=== PATIENT | female | born 1985 | race Caucasian/White ===

== ENCOUNTER 2022-08-31 13:18 | Outpatient (CLI) | payer BC, SELFPAY ==
--- OUTSIDE RECORDS SUMMARY | 2022-08-31 13:39 | XMS_ITS | Clinical Summary ---
:1985 Author Organization [facility] [place] [address] Care Team Providers Name Role Phone Tulio Navas MD Primary Care Provider [phone] Allergies No known active allergies Medications Medication Sig Dispensed Refills Start Date End Date Status polyethylene glycoL Take 17 g by mouth 1 jar 12 11/30/2017 Active (MIRALAX) 17 once daily. gram/dose powderIndications: Slow transit constipation traZODone (DESYREL) TAKE 1 TO 2 TABLETS 180 tablet 1 8 Active 50 mg BY MOUTH AT BEDTIME tabletIndications: Insomnia, unspecified type acetaminophen Take 1 to 2 tablets 100 tablet 0 07/18/2018 Active (TYLENOL EXTRA by mouth every 6 STRGTH) 500 mg hours if needed. tabletIndications: Max acetaminophen S/P laparoscopy dose: 4000mg in 24 hrs. ibuprofen (ADVIL; Take 1 tablet by 30 tablet 0 07/18/2018 Active MOTRIN) 600 mg mouth every 6 hours tabletIndications: if needed for Pain. S/P laparoscopy HYDROmorphone Take 1 tablet by 15 tablet 0 07/18/2018 Active (DILAUDID) 2 mg mouth every 4 hours tabletIndications: if needed for Pain. S/P laparoscopy docusate (COLACE) Take 1 capsule by 100 capsule 0 07/18/2018 Active 100 mg mouth 2 times daily capsuleIndications: if needed for S/P laparoscopy Constipation. 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 apanicolaou smear of 07/18/2017 cervix Overview: 07/2017 Plan: colposcopy Migraine 06/07/2014 Allergic rhinitis 02/18/2014 Vitamin D deficiency 03/29/2012 Major depressive disorder, recurrent episode, mild Immunizations Name Administration Dates Next Due Hepatitis B (Adult) 12/13/2006, 07/02/2006, 06/02/2006 Influenza, IIV3 (Age >=3 years) 07/18/2012, 08/27/2011, 07/19, 10/22/2009, 10/12/2008, 09/19/2007 Influenza, IIV4 07/27/2017, 07/30/2014 Influenza, IIV4 (Age 6-35 Mos) 08/06/2017 Tdap 04/03/2011 Tuberculin (PPD) 04/05/2018, 03/23/2018, 08/06/2014, 07/30/2014, 12/22/2011 Varicella Vaccine 09/19/2014, 08/17/2014 Family History Medical History Relation Name Comments Cancer-prostate Father Hypertension Father Heart Disease Maternal Grandfather [place] age 61 Hypertension Maternal Grandfather Heart Disease Maternal Grandmother SVT with ab lation Hypertension Maternal Grandmother Hyperlipidemia Mother Cancer-prostate Paternal Grandfather Hodgkin's lymphoma Paternal Uncle Relation Name Status Comments Father Maternal Grandfather Maternal Grandmother Mother Paternal Grandfather Paternal Grandmother Paternal Uncle Social History Tobacco Use Types Packs/Day Years Used Date Never Smoker Smokeless Tobacco: Never Used Alcohol Use Standard Drinks/Week Comments Yes 0 (1 standard drink = 0.6 oz pure alcoho l) occasionally 0-1 per month Alcohol Habits Answer Date Recorded How often do you have a drink containing Not asked alcohol? How many drinks containing alcohol do you Not asked have on a typical day when you are drinking? How often do you have six or more drinks on Not asked one occasion? Comment: occasionally 0-1 per month 07/18/2018 Sex Assigned at Date Recorded Not on file Obstetrics History Para Term AB IAB SAB Ectopic Multiple Living Live Births 3 2 2 0 1 0 1 0 0 2 3 Date Outcome GA Total Labor/2nd/3rd Weight Sex Delivery Anes PTL Awa A 1 A5 Name Clin Labor 10/18 SAB 6w0 SPONTANEO Dece /2002 d US ased 01/14 Term 40w 4.05 kg M Vag None Gracia 6 8 Zacha McInt /2003 0d (8 lb ng ry yre 15 oz) Delivery Location: [facility] 03/20/2007 Term 38w0d 3.32 kg (7 lb 5 oz) F Vag Awa ing 6 8 Navas Delivery Location: [facility] Last Filed Vital Signs Vital Sign Reading Time Taken Comments Blood Pressure 121/78 08/27/2019 2:37 PM PHYSICIAN AIDE Pulse 105 08/27/2019 2:37 PM PHYSICIAN AIDE Temperature 36.8 ??C (98.2 ??F) 08/27/2019 2:37 PM PHYSICIAN AIDE Respiratory Rate 17 08/27/2019 2:37 PM PHYSICIAN AIDE Oxygen Saturation 98% 08/27/2019 2:37 PM PHYSICIAN AIDE Inhaled Oxygen Concentration - - Weight 69.5 kg (153 lb 4.8 oz) 07/18/2018 6:19 AM CDT Height 174 cm (5' 8.5) 07/18/2018 6:19 AM CDT Body Mass Index 22.97 07/18/2018 6:19 AM CDT Plan of Treatment Health Maintenance Due Date Last Done Comments Depression screening for age 12+ 03/23/2019 03/23/2018, 06/2017, 12/26/2015 BMI (ht and wt on same day) for 06/29/2019 06/29/2018, 06/03/2018, age 18+ 08/18/2017, Additional history exists COVID-19 vaccine series (3 - 12/25/2020 10/30/2020, 020 Booster for Pfizer series) Tetanus booster 04/03/2021 04/03/2011, 04/03/2011 Influenza for age 9-49 06/18/2022 07/27/2017, 07/30/2014 (Completed outside of [facility]), 07/30/2014, Additional history exists Pap test for age 21-65 06/30/2024 06/30/2021, 06/30/2021, 09/16/2018 (Completed outside of [facility]), Additional history exists Tdap Completed 04/03/2011 Hepatitis C screening for age Completed 09/30/2012, 2011 18-79 Results Not on filefrom Last 3 Months Insurance Payer Benefit Plan / Subscriber ID Effective Dates Phone Addre ss Type Group 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 [place] [address] HEALTH HP [id number] 2014-Presen [address] [place] [address] MEDICA MEDICA HEALTH [id number] 2018-Presen [id number] [place] [id number] [id number] [place] (Home) BILL[address]ARC[phone] S[address] Butcher Personal/Famil Self 1985 [address] [place] [address] (Home) VANDANA [phone] BILLIE [address]TSON [id number] (Work) Sonia Butcher Workers Comp Self [id number] (Home) [address] [place] [id number] Advance Directives Latest Code Status on File Code Status Date Activated Date Inactivated Comments Full Code 07/18/2018 6:08 AM 07/18/2018 1:35 PM Full Code 04/08/2015 10:06 AM 04/09/2015 2:26 AM Full Code 04/08/2015 7:27 AM 04/08/2015 10:06 AM 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
[2022-09-02 19:16] LABS: Follicle Stimulating Hormone 8.6 IU/L; Luteinizing Hormone 11.4 IU/L
[2022-09-02 19:18] LABS: Estradiol Premenol Female 82 pg/mL
== END 2022-08-31 13:19 | disposition home or self-care (01) ==
PROVIDERS: PCP Family Medicine; Visit Provider Family Medicine
DX: R23.2 Flushing (principal); Z11.1 Encounter for screening for respiratory tuberculosis; F41.9 Anxiety disorder, unspecified
CPT/HCPCS: 82670; 83001; 83002; 86480

== ENCOUNTER 2022-09-17 07:16 | Emergency (ER) | payer BC, SELFPAY ==
[2022-09-17] VITALS (19 sets, daily range): BP systolic 74–124; BP diastolic 57–81; PULSE 83–102; RESP 18–22; TEMP 37–37.9; O2SAT 93–97; BMI 27.4
--- NOTE | 2022-09-17 07:57 | CRLHL7_ITS ---
For Patients: As a result of the Century Cures Act, medical imaging exams and procedure reports are released immediately into your electronic medical record. You may view this report before your referring provider. If you have questions, please contact your health care provider. INDICATION: Dyspnea. Factor 5. Not anticoagulated. History of pulmonary embolus COMPARISON: July 04, 2019 TECHNIQUE: : CT examination of the chest was performed with the uneventful intravenous administration of 95 cc of Isovue 370 while thin axial sections were obtained from above the apices of the lungs to the lung bases. Please note that all CT scans at this facility use dose modulation, iterative reconstruction, and/or weight-based dosing when appropriate to reduce radiation dose to as low as reasonably achievable. FINDINGS: : HEART and MEDIASTINUM: The heart size is normal. There is no mediastinal or hilar adenopathy or mass. There is no pericardial effusion. PULMONARY ARTERIAL CIRCULATION: There is no visible intraluminal filling defect to suggest pulmonary embolus. LUNGS: The lungs show no focal consolidation or mass. The airways appear normal. A few scattered linear opacities are likely related atelectasis parent PLEURAL SPACES: There is no pleural effusion, pneumothorax or pleural based mass. VISUALIZED UPPER ABDOMEN: The limited visualized upper abdominal structures appear normal. OSSEOUS STRUCTURES: Age-appropriate appearance. No acute fracture or destructive process. TUBES and LINES: None. IMPRESSION: There is no finding of pulmonary embolus. A few linear opacities are likely related to atelectasis. The lungs and pleural spaces are otherwise unremarkable. Please note that all CT scans at this facility use dose modulation, iterative reconstruction, and/or weight-based dosing when appropriate to reduce radiation dose to as low as reasonably achievable. Dictated by Montrell Nicole MD @ 09/17/2022 10:24:20 AM (Electronically Signed)
--- NOTE | 2022-09-17 08:01 | ED.URI ---
HPI - URI/Sore Throat General Chief Complaint: Cough <Sharmin Sahu MD - Last Filed: 09/17/22 08:15> Stated Complaint: fever, cough <Sharmin Sahu MD - Last Filed: 09/17/22 08:15> Time Seen by Provider: 09/17/22 07:32 <Sharmin Sahu MD - Last Filed: 09/17/22 08:15> Source: patient <Sharmin Sahu MD - Last Filed: 09/17/22 08:15> Mode of arrival: ambulatory <Sharmin Sahu MD - Last Filed: 09/17/22 08:15> Limitations: no limitations <Sharmin Sahu MD - Last Filed: 09/17/22 08:15> History of Present Illness HPI Narrative: 37-year-old female presents to the emergency department with a 4 week history of cough and upper respiratory infection. Patient reports that her symptoms had initially started to improve about 3 weeks ago and then 4 days ago, she started experiencing increased fatigue, sinus pressure and now is having shortness of breath. She also has some blood tinged nasal verses respiratory drainage. Not been checking her temperature as she does not have access to a thermometer but does feel like she is having significant sweats and chills. 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 She did get her flu shot this year. She has a notable history of pulmonary embolism a few years ago. This is when she was on low-dose continuous oral contraceptives, but workup did find that she had factor 5 Leiden. Her periods were quite awful when she was on the Xarelto and therefore she has switched to a low-dose aspirin. She has since had a uterine ablation and a Mirena IUD placed and reports that things are going better. She has not considered going back on stronger anticoagulation. She does admit that the shortness of breath is out of character for her and she is somewhat concerned about another blood clot as well. She did have posttussive emesis a couple of days ago but this has resolved. No pertinent travel. No swelling noted in her calves. She did a virtual appointment 3 days ago. Was given Tessalon Perles which helped slightly with her nighttime cough. She has been using the DayQuil and Tylenol through the day with some minimal improvement in symptoms. She presents today because she is not getting better at the rate she expected and is concerned she could have pneumonia. Past medical history is most notable for endometriosis and mildly provoked pulmonary embolism with a history of factor 5 Leiden. Home medications low-dose baby aspirin once daily, Lexapro and spironolactone which she uses for acne. Socially she is a nonsmoker with no other significant risk factors for illness exposure. ROS is notable for the HEENT, generalized, respiratory symptoms as described above. Otherwise she denies times 12 systems. <Sharmin Shau MD - Last Filed: 09/17/22 08:15> Related Data Home Medications: Home Medications Medication Instructions Recorded Confirmed aspirin 81 mg tablet,delayed 81 mg PO QDAY 05/26/22 08/31/22 release levonorgestrel 20 mcg/24 hours (8 1 device intrauterine ONCE 07/06/22 08/31/22 yrs) 52 mg intrauterine device (Mirena) albuterol sulfate 90 mcg/actuation 2 puff inhalation PRN 08/31/22 08/31/22 aerosol inhaler Previous Rx's Medication Instructions Recorded escitalopram oxalate 10 mg tablet 10 mg PO QDAY #90 tabs 07/06/22 (Lexapro) spironolactone 50 mg tablet 50 mg PO QDAY #90 tabs 07/06/22 tramadol 50 mg tablet 50 mg PO Q6-8H PRN pain #30 tabs 07/06/22 trazodone 50 mg tablet 50 mg PO .HS PRN sleep #90 tabs 07/06/22 oseltamivir 75 mg capsule (Tamiflu) 75 mg PO BID 5 days #10 caps 09/17/22 <Shramin Sahu MD - Last Filed: 09/17/22 08:15> Allergies/Adverse Reactions: Allergies Allergy/AdvReac Type Severity Reaction Status Date / Time No Known Drug Allergies Allergy Verified 09/17/22 07:20 <Sharmin Sahu MD - Last Filed: 09/17/22 08:15> [facility] Medical History: Medical History Acne vulgaris Allergic rhinitis Bilateral pulmonary embolism Cervical herniated disc Endometriosis determined by laparoscopy Factor 5 Leiden mutation, heterozygous Insomnia 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, social EtOH Smoking Status: Never smoker Do you use any of these nicotine containing products: None Second hand tobacco smoke exposure: No How often do you have a drink containing alcohol: monthly or less How many standard drinks containing alcohol do you have on a typical day: 1 or 2 How often do you have six or more drinks on one occasion: Never AUDIT-C Alcohol total score: 1 Non-prescribed substance use: denies use Little interest or pleasure in doing things: not at all Feeling down, depressed, or hopeless: not at all service: No <Sharmin Sahu MD - Last Filed: 09/17/22 08:15> Exam Const: Vital Signs, click to edit/add: Vital Signs - 24 hr 09/17/22 07:21 09/17/22 08:21 Temperature 100.3 F H Pulse Rate 92 Pulse Rate [Pulse Oximeter] 99 Respiratory Rate 22 Blood Pressure [Ri ght Upper Arm] 124/81 Pulse Oximetry 94 95 Oxygen Delivery Me thod Room Air <Sharmin Sahu MD - Last Filed: 09/17/22 08:15> Vital Signs, click to edit/add: Vital Signs - 24 hr 09/17/22 07:21 09/17/22 08:21 Temperature 100.3 F H Pulse Rate 92 Pulse Rate [Pulse Oximeter] 99 Respiratory Rate 22 Blood Pressure [Ri ght Upper Arm] 124/81 Pulse Oximetry 94 95 Oxygen Delivery Me thod Room Air <Tigist Marina MD - Last Filed: 09/17/22 10:34> Documenting provider has reviewed patient's vital signs: yes <Sharmin Sahu MD - Last Filed: 09/17/22 08:15> Common normals: no apparent distress <Sharmin Sahu MD - Last Filed: 09/17/22 08:15> General appearance: cooperative and well kempt <Sharmin Sahu MD - Last Filed: 09/17/22 08:15> Other: Appears mildly ill <Sharmin Sahu MD - Last Filed: 09/17/22 08:15> HENMT: Common normals: normocephalic <Sharmin Sahu MD - Last Filed: 09/17/22 08:15> Head and scalp: normocephalic <Sharmin Sahu MD - Last Filed: 09/17/22 08:15> Other: Nose with mild clear mucus rhinorrhea. Mildly inflamed nasal passages oropharynx with acyanotic lips, moist membranes. Mild postnasal drip noted. <Sharmin Sahu MD - Last Filed: 09/17/22 08:15> Eye: Other: Sclera and conjunctiva are mildly injected but with no exudate. Normal-appearing pupils and normal visual tracking <Sharmin Sahu MD - Last Filed: 09/17/22 08:15> Neck & C-Spine: Other: Mild anterior cervical and submandibular lymphadenopathy <Sharmin Sahu MD - Last Filed: 09/17/22 08:15> Resp: Common normals: normal respiratory effort, no use of accessory muscles and clear to auscultation bilaterally <MD Idalmis Wilcox Last Filed: 09/17/22 08:15> Effort & inspection: able to speak in complete sentences <MD Idalmis Wilcox Last Filed: 09/17/22 08:15> Auscultation: clear to auscultation bilaterally <MD Idalmis Wilcox Last Filed: 09/17/22 08:15> Cardio: Common normals: regular rate, regular rhythm, S1 normal heart sound, S2 normal heart sound, no murmurs and peripheral pulses 2+ throughout <MD Idalmis Wilcox Last Filed: 09/17/22 08:15> Rate: regular rate <MD Idalmis Wilcox Last Filed: 09/17/22 08:15> Rhythm: regular rhythm <MD Idalmis Wilcox Last Filed: 09/17/22 08:15> Heart sounds: S1 normal and S2 normal <MD Idalmis Wilcox Last Filed: 09/17/22 08:15> Peripheral pulses: pulses 2+ throughout <MD Idalmis Wilcox Last Filed: 09/17/22 08:15> GI: Common normals: Normal to inspection, nondistended, normoactive bowel sounds present, soft to palpation, non-tender and no hepatosplenomegaly <MD Idalmis Wilcox Last Filed: 09/17/22 08:15> Palpation: soft and no hepatosplenomegaly <MD Idalmis Wilcox Last Filed: 09/17/22 08:15> Extremity: Common normals: normal to inspection, normal capillary refill and no pedal edema <MD Idalmis Wilcox Last Filed: 09/17/22 08:15> Neuro: Speech: speech normal <MD Idalmis Wilcox Last Filed: 09/17/22 08:15> Motor exam: no tremor noted and no movement abnormalities noted <MD Idalmis Wilcox Last Filed: 09/17/22 08:15> Psych: Common normals: thought process normal, cooperative and affect normal <MD Idalmis Wilcox Last Filed: 09/17/22 08:15> Appearance: well kempt <MD Idalmis Wilcox Last Filed: 09/17/22 08:15> Thought process: normal thought process <MD Idalmis Wilcox Last Filed: 09/17/22 08:15> Insight: insight good <MD Idalmis Wilcox Last Filed: 09/17/22 08:15> Judgement: judgment good <MD Idalmis Wilcox Last Filed: 09/17/22 08:15> Skin: Common normals: no rashes or lesions noted <Sharmin Sahu MD - Last Filed: 09/17/22 08:15> General skin exam: no rashes or lesions noted <Sharmin Sahu MD - Last Filed: 09/17/22 08:15> Course Course Hospital Course: Differential diagnosis including RSV, influenza. Most likely influenza. Cannot exclude pneumonia, pulmonary embolism, especially with her history of shortness of breath and prior PE on oral contraceptives. Other viral etiologies in sinus infection considered as well. No signs of any cardiac disease. Recommended basic labs to look for any signs of bacterial infection, inflammation, electrolyte abnormality. Swabs for influenza, RSV and COVID. Discussed risks and benefits of a D-dimer test, it would not change my management. Based on her shortness of breath, slight hemoptysis and history, I do recommend a CT scan of the chest and she was agreeable to this. No treatments will be initiated just yet. Will hand over care to my partner, Dr. Marina. <Sharmin Sahu MD - Last Filed: 09/17/22 08:15> Reevaluation(s) Reevaluation #1: Patient's lab work was unremarkable, influenza was positive. Chest CT negative for PE or pneumonia. <Tigist Marina MD - Last Filed: 09/17/22 10:34> Vital Signs Vital signs: Initial Vital Signs Temperature 100.3 F H 09/17/22 07:21 Temperature Source Temporal Artery Scan 09/17/22 07:21 Pulse Rate 99 09/17/22 07:21 Pulse Rhythm 09/17/22 07:21 Respiratory Rate 22 09/17/22 07:21 Blood Pressure 124/81 09/17/22 07:21 Blood Pressure Mean 95 09/17/22 07:21 Pulse Oximetry 94 09/17/22 07:21 Oxygen Delivery Method 09/17/22 07:21 Vital Signs Temperature 100.3 F H 09/17/22 07:21 Pulse Rate 99 09/17/22 07:21 Respiratory Rate 22 09/17/22 07:21 Blood Pressure 124/81 09/17/22 07:21 Pulse Oximetry 94 09/17/22 07:21 Oxygen Delivery Method 09/17/22 07:21 Temperature 100.3 F H 09/17/22 07:21 Pulse Rate 92 09/17/22 08:21 Respiratory Rate 22 09/17/22 07:21 Blood Pressure 124/81 09/17/22 07:21 Pulse Oximetry 95 09/17/22 08:21 Oxygen Delivery Method 09/17/22 07:21 <Sharmin Sahu MD - Last Filed: 09/17/22 08:15> Initial Vital Signs Temperature 100.3 F H 09/17/22 07:21 Temperature Source Temporal Artery Scan 09/17/22 07:21 Pulse Rate 99 09/17/22 07:21 Pulse Rhythm 09/17/22 07:21 Respiratory Rate 22 09/17/22 07:21 Blood Pressure 124/81 09/17/22 07:21 Blood Pressure Mean 95 09/17/22 07:21 Pulse Oximetry 94 09/17/22 07:21 Oxygen Delivery Method 09/17/22 07:21 Vital Signs Temperature 100.3 F H 09/17/22 07:21 Pulse Rate 99 09/17/22 07:21 Respiratory Rate 22 09/17/22 07:21 Blood Pressure 124/81 09/17/22 07:21 Pulse Oximetry 94 09/17/22 07:21 Oxygen Delivery Method 09/17/22 07:21 Temperature 100.3 F H 09/17/22 07:21 Pulse Rate 92 09/17/22 08:21 Respiratory Rate 22 09/17/22 07:21 Blood Pressure 124/81 09/17/22 07:21 Pulse Oximetry 95 09/17/22 08:21 Oxygen Delivery Method 09/17/22 07:21 <Tigist Marina MD - Last Filed: 09/17/22 10:34> MDM - URI/Sore Throat MDM Narrative Medical decision making narrative: 37-year-old female with influenza a. We discussed symptomatic treatment, Tamiflu use, reasons for follow-up. Patient was agreeable and had no other questions. <Tigist Marina MD - Last Filed: 09/17/22 10:34> Lab Data Attestation: I reviewed the patient's lab results. <Tigist Marina MD - Last Filed: 09/17/22 10:34> Labs: Lab Results 09/17/22 09/17/22 09/17/22 Range/Units 07:45 08:15 08:15 WBC 4.93 (4.50-11.00) K/uL RBC 5.07 (4.00-5.20) m/uL Hgb 14.8 (12.0-16.0) gm/dL Hct 45.6 (33.0-51.0) % MCV 90 (80-100) fL MCH 29 (26-34) pg MCHC 33 (32-36) gm/dL RDW Coeff of Kris 12.7 (11.5-15.5) % Plt Count 202 (140-440) K/uL Neut % (Auto) 73.1 H (42.0-72.0) % Lymph % (Auto) 17.0 L (20-44) % Gibson % (Auto) 9.3 (0.0-11.0) % Eos % (Auto) 0.4 (0.0-7.0) % Baso % (Auto) 0.0 (0.0-3.0) % Neut # (Auto) 3.60 (1.7-7.0) K/uL Lymph # (Auto) 0.80 L (0.90-2.90) K/uL Gibson # (Auto) 0.50 (0.00-0.90) K/UL Eos # (Auto) 0.02 (0.00-0.50) K/uL Baso # (Auto) 0.00 (0.00-0.30) K/uL Abs Immat Gran (auto) 0.01 (0.00-0.30) K/uL Imm/Tot Granulo (auto) 0.2 % Sodium 139 (135-149) mmol/L Potassium 3.5 L (3.6-5.1) mmol/L Chloride 105 (96-114) mmol/L Carbon Dioxide 27 (20-32) mmol/L BUN 11 (5-24) mg/dL Creatinine 0.6 (0.5-1.5) mg/dL Estimated Creat Clear 129.50 Estimated GFR 118 ml/min Glucose 91 (60-115) mg/dL Calcium 8.4 (8.4-10.6) mg/dL C-Reactive Protein 5.9 H (0.5-1.0) mg/dL HCG, Qual (Negative) SARS-CoV-2 (PCR) Negative SARS-CoV-2 (Negative) Influenza Type A (PCR) POSITIVE PCR FLU A A (Negative) Influenza Type B (PCR) Negative PCR FLU B (Negative) RSV (PCR) Negative PCR RSV (Negative) 09/17/22 Range/Units 08:15 WBC (4.50-11.00) K/uL RBC (4.00-5.20) m/uL Hgb (12.0-16.0) gm/dL Hct (33.0-51.0) % MCV (80-100) fL MCH (26-34) pg MCHC (32-36) gm/dL RDW Coeff of Kris (11.5-15.5) % Plt Count (140-440) K/uL Neut % (Auto) (42.0-72.0) % Lymph % (Auto) (20-44) % Gibson % (Auto) (0.0-11.0) % Eos % (Auto) (0.0-7.0) % Baso % (Auto) (0.0-3.0) % Neut # (Auto) (1.7-7.0) K/uL Lymph # (Auto) (0.90-2.90) K/uL Gibson # (Auto) (0.00-0.90) K/UL Eos # (Auto) (0.00-0.50) K/uL Baso # (Auto) (0.00-0.30) K/uL Abs Immat Gran (auto) (0.00-0.30) K/uL Imm/Tot Granulo (auto) % Sodium (135-149) mmol/L Potassium (3.6-5.1) mmol/L Chloride (96-114) mmol/L Carbon Dioxide (20-32) mmol/L BUN (5-24) mg/dL Creatinine (0.5-1.5) mg/dL Estimated Creat Clear Estimated GFR ml/min Glucose (60-115) mg/dL Calcium (8.4-10.6) mg/dL C-Reactive Protein (0.5-1.0) mg/dL HCG, Qual Negative (Negative) SARS-CoV-2 (PCR) (Negative) Influenza Type A (PCR) (Negative) Influenza Type B (PCR) (Negative) RSV (PCR) (Negative) <Sharmin Sahu MD - Last Filed: 12/01/22 08:15> Lab Results 09/17/22 09/17/22 09/17/22 Range/Units 07:45 08:15 08:15 WBC 4.93 (4.50-11.00) K/uL RBC 5.07 (4.00-5.20) m/uL Hgb 14.8 (12.0-16.0) gm/dL Hct 45.6 (33.0-51.0) % MCV 90 (80-100) fL MCH 29 (26-34) pg MCHC 33 (32-36) gm/dL RDW Coeff of Kris 12.7 (11.5-15.5) % Plt Count 202 (140-440) K/uL Neut % (Auto) 73.1 H (42.0-72.0) % Lymph % (Auto) 17.0 L (20-44) % Gibson % (Auto) 9.3 (0.0-11.0) % Eos % (Auto) 0.4 (0.0-7.0) % Baso % (Auto) 0.0 (0.0-3.0) % Neut # (Auto) 3.60 (1.7-7.0) K/uL Lymph # (Auto) 0.80 L (0.90-2.90) K/uL Gibson # (Auto) 0.50 (0.00-0.90) K/UL Eos # (Auto) 0.02 (0.00-0.50) K/uL Baso # (Auto) 0.00 (0.00-0.30) K/uL Abs Immat Gran (auto) 0.01 (0.00-0.30) K/uL Imm/Tot Granulo (auto) 0.2 % Sodium 139 (135-149) mmol/L Potassium 3.5 L (3.6-5.1) mmol/L Chloride 105 (96-114) mmol/L Carbon Dioxide 27 (20-32) mmol/L BUN 11 (5-24) mg/dL Creatinine 0.6 (0.5-1.5) mg/dL Estimated Creat Clear 129.50 Estimated GFR 118 ml/min Glucose 91 (60-115) mg/dL Calcium 8.4 (8.4-10.6) mg/dL C-Reactive Protein 5.9 H (0.5-1.0) mg/dL HCG, Qual (Negative) SARS-CoV-2 (PCR) Negative SARS-CoV-2 (Negative) Influenza Type A (PCR) POSITIVE PCR FLU A A (Negative) Influenza Type B (PCR) Negative PCR FLU B (Negative) RSV (PCR) Negative PCR RSV (Negative) 09/17/22 Range/Units 08:15 WBC (4.50-11.00) K/uL RBC (4.00-5.20) m/uL Hgb (12.0-16.0) gm/dL Hct (33.0-51.0) % MCV (80-100) fL MCH (26-34) pg MCHC (32-36) gm/dL RDW Coeff of Kris (11.5-15.5) % Plt Count (140-440) K/uL Neut % (Auto) (42.0-72.0) % Lymph % (Auto) (20-44) % Gibson % (Auto) (0.0-11.0) % Eos % (Auto) (0.0-7.0) % Baso % (Auto) (0.0-3.0) % Neut # (Auto) (1.7-7.0) K/uL Lymph # (Auto) (0.90-2.90) K/uL Gibson # (Auto) (0.00-0.90) K/UL Eos # (Auto) (0.00-0.50) K/uL Baso # (Auto) (0.00-0.30) K/uL Abs Immat Gran (auto) (0.00-0.30) K/uL Imm/Tot Granulo (auto) % Sodium (135-149) mmol/L Potassium (3.6-5.1) mmol/L Chloride (96-114) mmol/L Carbon Dioxide (20-32) mmol/L BUN (5-24) mg/dL Creatinine (0.5-1.5) mg/dL Estimated Creat Clear Estimated GFR ml/min Glucose (60-115) mg/dL Calcium (8.4-10.6) mg/dL C-Reactive Protein (0.5-1.0) mg/dL HCG, Qual Negative (Negative) SARS-CoV-2 (PCR) (Negative) Influenza Type A (PCR) (Negative) Influenza Type B (PCR) (Negative) RSV (PCR) (Negative) <Tigist Marina MD - Last Filed: 09/17/22 10:34> Imaging Data CT scan - chest: Attestation: I have reviewed the pertinent imaging results. <Tigist Marina MD - Last Filed: 09/17/22 10:34> Radiologist's impression: CT examination of the chest was performed with the uneventful intravenous administration of 95 cc of Isovue 370 while thin axial sections were obtained from above the apices of the lungs to the lung bases. Please note that all CT scans at this facility use dose modulation, iterative reconstruction, and/or weight-based dosing when appropriate to reduce radiation dose to as low as reasonably achievable. FINDINGS: : HEART and MEDIASTINUM: The heart size is normal. There is no mediastinal or hilar adenopathy or mass. There is no pericardial effusion. PULMONARY ARTERIAL CIRCULATION: There is no visible intraluminal filling defect to suggest pulmonary embolus. LUNGS: The lungs show no focal consolidation or mass. The airways appear normal. A few scattered linear opacities are likely related atelectasis parent PLEURAL SPACES: There is no pleural effusion, pneumothorax or pleural based mass. VISUALIZED UPPER ABDOMEN: The limited visualized upper abdominal structures appear normal. OSSEOUS STRUCTURES: Age-appropriate appearance. No acute fracture or destructive process. TUBES and LINES: None. IMPRESSION: There is no finding of pulmonary embolus. A few linear opacities are likely related to atelectasis. The lungs and pleural spaces are otherwise unremarkable. <Tigist Marina MD - Last Filed: 09/17/22 10:34> Discharge Plan Discharge Clinical Impression: Influenza A <Sharmin Sahu MD - Last Filed: 09/17/22 08:15> Patient Disposition: Home, Self-Care <Sharmin Sahu MD - Last Filed: 09/17/22 08:15> Condition: Stable <Sharmin Sahu MD - Last Filed: 09/17/22 08:15> Additional Instructions: Continue using ibuprofen or Tylenol as needed for fevers and achiness. Rest as much as you can. Do your best to stay well hydrated. <Sharmin Sahu MD - Last Filed: 09/17/22 08:15> Prescriptions: New oseltamivir [Tamiflu] 75 mg capsule 75 mg PO BID 5 Days Qty: 10 0RF No Action Mirena 20 mcg/24 hours (7 yrs) 52 mg intrauterine device 1 device intrauterine ONCE Rx Instructions: as a single dose escitalopram oxalate [Lexapro] 10 mg tablet 10 mg PO QDAY Qty: 90 3RF spironolactone 50 mg tablet 50 mg PO QDAY Qty: 90 3RF trazodone 50 mg tablet 50 mg PO .HS PRN (Reason: sleep) Qty: 90 3RF tramadol 50 mg tablet 50 mg PO Q6-8H PRN (Reason: pain) Qty: 30 1RF albuterol sulfate 90 mcg/actuation HFA aerosol inhaler 2 puff inhalation PRN aspirin 81 mg tablet,delayed release (DR/EC) 81 mg PO QDAY <Sharmin Sahu MD - Last Filed: 09/17/22 08:15> Follow Up/Referrals: Tulio Navas MD [Primary Care Provider] - <Sharmin Sahu MD - Last Filed: 09/17/22 08:15> Stand Alone Forms: MyHealth Info Instructions <Sharmin Sahu MD - Last Filed: 09/17/22 08:15>
--- OUTSIDE RECORDS SUMMARY | 2022-09-17 08:16 | XMS_ITS | Clinical Summary ---
:1985 Author Organization [employer] [facility] [place] [address] Care Team Providers Name Role Phone Tulio Navas MD Primary Care Provider [phone] Allergies No known active allergies Medications [...] Father Hypertension Father Heart Disease Maternal Grandfather [place] age 61 Hypertension Maternal Grandfather Heart Disease [...] ng ry yre 15 oz) Delivery Location: [facility] 03/20/2007 Term 38w0d 3.32 kg (7 lb 5 oz) F Vag Awa ing 6 8 Navas Delivery Location: [facility] Last Filed Vital Signs Vital Sign Reading Time Taken Comments Blood Pressure 121/78 08/27/2019 2:37 PM 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 Pulse 105 08/27/2019 2:37 PM 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 Temperature 36.8 ??C (98.2 ??F) 08/27/2019 2:37 PM 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 Respiratory Rate 17 08/27/2019 2:37 PM 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 Oxygen Saturation 98% 08/27/2019 2:37 PM 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 Inhaled Oxygen Concentration - - Weight 69.5 [...] 9-49 06/18/2022 07/27/2017, 07/30/2014 (Completed outside of [facility]), 07/30/2014, Additional history exists Pap test for age 21-65 06/30/2024 06/30/2021, 06/30/2021, 09/16/2018 (Completed outside of [facility]), Additional history exists Tdap Completed 04/03/2011 HIV for age 15-65 Completed 09/30/2012, 08/10/2012 Hepatitis C screening for age Completed 09/30/2012, 2011 18-79 Results Not on filefrom Last 3 Months Insurance Payer Benefit Plan / Subscriber ID Effective Dates Phone Addre ss Type Group WC 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 [place] [address] HEALTH HP [id number] 2014-Presen [address] [place] [address] MEDICA MEDICA HEALTH [id number] 2018-Presen [id number] [place] [id number] [address] (Home) [place] [phone] S[address] Butcher Personal/Famil Self 1985 [address] (Home) VANDANA [phone] [address]ILL[address] [place] [phone] (Work) Sonia Butcher Workers Comp Self [id number] (Home) [address] [place] [id number] Advance Directives Latest Code Status on File Code Status Date Activated Date Inactivated Comments Full Code 07/18/2018 6:08 AM 07/18/2018 1:35 PM Full Code 04/08/2015 10:06 AM 04/09/2015 2:26 AM Full Code 04/08/2015 7:27 AM 04/08/2015 10:06 AM 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
[2022-09-17 08:23] LABS: Eosinophils Absolute Auto 0.02 K/uL (0.00-0.50); Eosinophils Percent Auto 0.4 % (0.0-7.0); Hematocrit 45.6 % (33.0-51.0); Hemoglobin* 14.8 gm/dL (12.0-16.0); Immature Granulocytes Abs Auto 0.01 K/uL (0.00-0.30); Immature Granulocytes Pct Auto 0.2 %; Mean Corpuscular HGB Conc 33 gm/dL (32-36); Mean Corpuscular Hemoglobin 29 pg (26-34); Mean Corpuscular Volume 90 fL (80-100); Monocytes Percent Auto 9.3 % (0.0-11.0); Neutrophils Percent Auto 73.1 % (42.0-72.0); Platelet Count* 202 K/uL (140-440); RDW Coefficient of Variation % 12.7 % (11.5-15.5); Red Blood Count 5.07 m/uL (4.00-5.20); White Blood Count* 4.93 K/uL (4.50-11.00)
[2022-09-17 08:24] LABS: Slide Review Reflex No
[2022-09-17 08:30] LABS: PCR FLU A POSITIVE PCR FLU A (Negative); PCR FLU B Negative PCR FLU B (Negative); PCR RSV Negative PCR RSV (Negative)
[2022-09-17 08:36] LABS: Chloride* 105 mmol/L (96-114); Sodium* 139 mmol/L (135-149)
[2022-09-17 08:37] LABS: Potassium* 3.5 mmol/L (3.6-5.1)
[2022-09-17 08:38] LABS: SARS PCR* Negative SARS-CoV-2 (Negative)
[2022-09-17 08:39] LABS: Creatinine* 0.6 mg/dL (0.5-1.5); Estimated Glomerular Filt Rate 118 ml/min
[2022-09-17 08:40] LABS: Blood Urea Nitrogen* 11 mg/dL (5-24); Calcium* 8.4 mg/dL (8.4-10.6); Carbon Dioxide* 27 mmol/L (20-32); Glucose* 91 mg/dL (60-115)
[2022-09-17 08:43] LABS: C Reactive Protein* 5.9 mg/dL (0.5-1.0)
[2022-09-17 09:19] LABS: HCG Qualitative* Negative (Negative)
[2022-09-19 12:43] LABS: Prolactin 10.6 ng/mL (2.8-29.2)
== END 2022-09-17 11:03 | disposition home or self-care (01) ==
PROVIDERS: Family Medicine; Emergency Provider Family Medicine; PCP Family Medicine
DX: J09.X2 Influenza due to identified novel influenza A virus with other respiratory manifestations (principal)
CPT/HCPCS: 36415; 71260; 80048; 84146; 84703; 85025; 86140; 87502; 87634; 87635; 99284; Q9967

== ENCOUNTER 2023-09-14 08:52 | Outpatient (CLI) | payer BC, SELFPAY | END 2023-09-14 08:53 | disposition home or self-care (01) | PROVIDERS: PCP Family Medicine; Visit Provider Family Medicine | DX: Z00.00 Encounter for general adult medical examination without abnormal findings (principal); E55.9 Vitamin D deficiency, unspecified; D68.51 Activated protein C resistance | CPT/HCPCS: 80048; 80061 ==

== ENCOUNTER 2024-09-18 14:21 | Outpatient (CLI) | payer BC, SELFPAY ==
--- OUTSIDE RECORDS SUMMARY | 2024-09-18 14:47 | XMS_ITS | Clinical Summary ---
Author Organization [facility] Address [place], [place] [address] Care Team Providers Care Family Practice Medical Doctor Name Role Phone Tulio Navas MD Primary Care Provider + Allergies No known active allergies Medications Medication Sig Dispensed Refills Start Date End Date Status polyethylene glycoL (MIRALAX) 17 gram/dose powderIndications: Slow transit constipation Take 17 g by mouth once daily. 1 jar 12 11/30/2017 Active Additional Information Patient taking differently:17 g OralDAILY PRN, Informant: Patient's Recall, Reported on 07/14/2018 traZODone (DESYREL) 50 mg tabletIndications: Insomnia, unspecified type TAKE 1 TO 2 TABLETS BY MOUTH AT BEDTIME 180 tablet 1 07/12/2018 Active acetaminophen (TYLENOL EXTRA STRGTH) 500 mg tabletIndications: S/P laparoscopy Take 1 to 2 tablets by mouth every 6 hours if needed. Max acetaminophen dose: 4000mg in 24 hrs. 100 tablet 07/18/2018 Active ibuprofen (ADVIL; MOTRIN) 600 mg tabletIndications: S/P laparoscopy Take 1 tablet by mouth every 6 hours if needed for Pain. 30 tablet 07/18/2018 Active HYDROmorphone (DILAUDID) 2 mg tabletIndications: S/P laparoscopy Take 1 tablet by mouth every 4 hours if needed for Pain. 15 tablet 07/18/2018 Active docusate (COLACE) 100 mg capsuleIndications :S/P laparoscopy Take 1 capsule by mouth 2 times daily if needed for Constipation. 100 capsule 07/18/2018 Active Active Problems Problem Noted Date Diagnosed Date Low grade squamous intraepit helial lesion (LGSIL) on Papanicolaou smear of cervix 07/18/2017 Overview (08/24/2017): 07/2017 Plan: colposcopy Migraine 06/07/2014 Allergic rhinitis 02/18/2014 Vitamin D deficiency 03/29/2012 Major depressive disorder, recurrent episode, mi ld 05/03/2007 Immunizations Name Administration Dates Next Due Hepatitis B (Adult) 12/13/2006,07/02/2006,2005 Influenza, IIV3 (Age >=3 years) 07/18/20 12,08/27/2011,08/07/2010,10/22/2009, 10/12/2008,09/19/2007 Influenza, IIV4 07/27/2017,07/30/2014 Influenza, IIV4 (Age 6-35 Mos) 08/06/2017 Tdap 04/03/2011 Tuberculin (PPD) 04/05/2018, 8,08/06/2014,07/30/2014, 12/22/2011 Varicella Vaccine 09/19/2014,08/17/2014 Family History Medical History Relation Name Comments Cancer-prostate Father Hypertension Father Heart Disease Maternal Grandfather MD age 61 Hypertension Maternal Grandfather Heart Disease Maternal Grandmother SVT wi th ablation Hypertension Maternal Grandmother Hyperlipidemia Mother Cancer-prostate Paternal Grandfather Hodgkin's lymphoma Paternal Uncle Relation Name Status Comments Father Maternal Grandfather Maternal Grandmother Mother Paternal Grandfather Paternal Grandmother Paternal Uncle Social History Tobacco Use Types Packs/Day Years Used Date Smoking Tobacco: Never Smokeless Tobacco: Never Alcohol Use Standard Drinks/Week Comments Yes 0 (1 standard drink = 0.6 oz pur e alcohol) occasionally 0-1 per month PHQ-2 Answer Date Recorded PHQ-2 Score 0 12/17/2018 Sex and Gender Information Value Date Recorded Sex Assigned at Not on file Gender Identity Not on file Sexual Orientation Not on file Obstetrics History Para Term AB IAB SAB Ectopic Multiple Livin g Live Births 3 2 2 0 1 0 1 0 0 2 3 Date Outcome GA Total Labor Labor/2nd/3rd Weight Sex Type Anes PTL Awa A1 A5 Name Clin 2002 SAB 6w0 d SPONTA NEOUS Decea sed 2003 Term 40w 0d 4.05 kg (8 lb 15 oz) M Vag None Livin g 6 8 [place] Delivery Location:[facility] 2006 Term 38w 0d 3.32 kg (7 lb 5 oz) F Xochilt Wagner g 6 8 [place] Delivery Location:[facility] Last Filed Vital Signs Vital Sign Reading Time Taken Comments Blood Pressure 118/85 04/02/2024 1:00 AM CDT Pulse 87 04/02/2024 1:00 AM CDT Temperature 36.9 C (98.5 F) 04/01/2024 11:02 PM CDT Respiratory Rate 14 04/02/2024 1:00 AM CDT Oxygen Saturation 100% 04/02/2024 1:00 AM CDT Inhaled Oxygen Concentration - - Weight 79.8 kg (176 lb) 04/01/2024 11:07 PM CDT Height 172.7 cm (5' 8) 04/01/2024 11:07 PM CDT Body Mass Index 26.76 04/01/2024 11:07 PM CDT Plan of Treatment Health Maintenance Due Date Last Done Comments Depression screening for age 12+ 03/23/2019 03/23/2018, 07/26/2017, 12/26/2015 BMI (ht and wt on same day) for age 18+ 06/29/2019 06/29/2018, 03/23/2018, 08/18/2017, Additional history exists Tetanus booster 04/03/2021 04/03/2011, 04/03/2011 COVID-19 vaccine series ( season) 2024 08/20/2023, 08/01/2021, 10/30/2020, Additional history exists Influenza for age 9-49 06/18/2024 7, 07/30/2014 (Completed outside of [facility]), 07/30/2014, Additional history exists Pap test for age 21-65 06/30/2024 , 06/30/2021, 09/16/2018 (Completed outside of [facility]), Additional history exists Tdap Completed 04/03/2011 HIV for age 15-65 Completed 09/30/2012, 08/10/2012 Hepatitis C screening for age 18-79 Completed 09/30/2012, 08/10/2012 Pneumococcal series for age 6-64 Aged Out No longer eligible based on patient's age to complete this topic Procedures Procedure Name Priority Date/Time Associated Diagnosis Comments HPV HIGH RISK Routine 06/30/2021 12:00 PM CDT ANTI HIV 1/2 Routine 09/30/2012 12:42 PM 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 exposure in workplace ANTI HCV Routine 09/30/2012 12:42 PM [employer]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 exposure in workplace from Last 3 Months or Most Recently Relevant to Health Maintenance Results * HPV HIGH RISK (06/30/2021 12:00 PM CDT) TYPE 16 Negative Negative 07/04/2021 5:37 AM CDT [facility] TYPE 18 Negative Negative 07/04/2021 5:37 AM CDT [facility] OTHER HIGH RISK TYPES Negative Negative 07/04/2021 5:37 AM CDT [facility] Other (Cervical/Vagina l) 06/30/2021 12:00 PM CDT 07/02/2021 9:28 AM CDT Narrative [facility] - 07/04/2021 5:37 AM CDT HPV types 16, 18, 31, 33, 35, 39, 45, 51, 52, 56, 58, 59, 66 and 68 DNA were undetectable or below the pre-set threshold. Methodology: Becka Connie 4800 HPV Test Tulio Navas MD MICROBIOLOGY [facility] [address] [place] [address], * ANTI HCV (09/30/2012 12:42 PM SANITATION OFFICER) ANTI HCV Non-reacti ve [facility] Blood specimen (specimen) BLOOD SPECIMEN / Unknown 09/30/2012 12:42 PM SANITATION OFFICER 09/30/2012 12:34 PM SANITATION OFFICER Jayshree Leslie MD [employer] [facility] [place]NAL ZIP [id number] [address] [place] [address] * ANTI HIV 1/2 (09/30/2012 12:42 PM SANITATION OFFICER) ANTI HIV 1/2 Non-reacti ve [facility] Blood specimen (specimen) BLOOD SPECIMEN / Unknown 09/30/2012 12:42 PM SANITATION OFFICER 09/30/2012 12:34 PM SANITATION OFFICER Jayshree Leslie MD [employer] [facility] [place]NAL ZIP [address] [address] [place] [address] from Last 3 Months or Most Recently Relevant to Health Maintenance Advance Directives * Full Code (Latest Code Status on File) Date Activated Date Inactivated Comments 07/18/2018 6:08 AM 07/18/2018 1:35 PM * Full Code Date Activated Date Inactivated Comments 04/08/2015 10:06 AM 04/09/2015 2:26 AM * Full Code Date Activated Date Inactivated Comments 04/08/2015 7:27 AM 04/08/2015 10:06 AM Care Teams Family Practice Medical Doctor Relationship Specialty Start Date End Date Tulio Navas MD [address] [place] [id number] PCP - General 03/22/06
[2024-09-20 18:31] LABS: HPV Source Cervix; HPV, High Risk by TMA Not Detected
== END 2024-09-18 14:22 | disposition home or self-care (01) ==
PROVIDERS: PCP Family Medicine; Visit Provider Family Medicine
DX: Z12.4 Encounter for screening for malignant neoplasm of cervix (principal); Z11.51 Encounter for screening for human papillomavirus (HPV)
CPT/HCPCS: 87624; 87625; 88141; 88142

== ENCOUNTER 2025-09-24 09:14 | Outpatient (CLI) | payer BC, SELFPAY | END 2025-09-24 09:15 | disposition home or self-care (01) | PROVIDERS: PCP Family Medicine; Visit Provider Family Medicine | DX: Z13.9 Encounter for screening, unspecified (principal) | CPT/HCPCS: 80048; 80061; 85025 ==